=== PATIENT | male | born 1985 | race Caucasian/White ===

== ENCOUNTER 2019-07-23 21:30 | Emergency (ER) | payer OTHER ==
[2019-07-23] MEDS ORDERED: DIPH,PERTUS(ACELL)TETVAC-LF 0.5 ML VIAL IM ONE (21:50)
[2019-07-23] MEDS ORDERED: LIDOCAINE 1% INJ 10MG/ML (20 ML MDV) SQ STA (21:50)
--- NOTE | 2019-07-23 22:57 | ED ---
General Adult HPI - General Chief complaint: Wound/Laceration Stated complaint: right arm laceration Time Seen by Provider: 07/23/19 21:43 Source: patient, RN notes reviewed, old records reviewed Mode of arrival: ambulatory Limitations: no limitations - History of Present Illness Initial comments: 34-year-old male patient presents to ED for chief complaint laceration. Patient reports that he brushes arm against a measuring tool at his work that was metal. Patient has a small laceration on the dorsal aspect of right forearm. Reports that nothing broke. Denies any foreign body. Last tetanus 9 years ago. Denies any other complaints. Systemic: Pt denies fatigue, fever/chills, rash. Pt denies weakness, night sweats, weight loss. Neuro: Pt denies headache, visual disturbances, syncope or pre-syncope. HEENT: Pt denies ocular discharge or irritation, otalgia, rhinorrhea, pharyngitis or notable lymphadenopathy. Cardiopulmonary: Pt denies chest pain, SOB, heart palpitations, dyspnea on exertion. Abdominal/GI: Pt denies abdominal pain, n/v/d. : Pt denies dysuria, burning w/ urination, frequency/urgency. Denies new onset urinary or bowel incontinence. MSK: Pt denies myalgia, loss of strength or function in extremities. Neuro: Pt denies new onset weakness, paresthesias. - Related Data Previous Rx's Medication Instructions Recorded Amoxicillin 500 mg PO Q8H #30 capsule 05/16/14 Allergies Allergy/AdvReac Type Severity Reaction Status Date / Time No Known Allergies Allergy Verified 07/23/19 21:49 Review of Systems ROS Statement: Those systems with pertinent positive or pertinent negative responses have been documented in the HPI. ROS Other: All systems not noted in ROS Statement are negative. Past Medical History Past Medical History: Seizure Disorder History of Any Multi-Drug Resistant Organisms: None Reported Past Surgical History: Orthopedic Surgery Past Psychological History: No Psychological Hx Reported Smoking Status: Current every day smoker Past Alcohol Use History: Rare Past Drug Use History: None Reported General Exam - General Exam Comments Initial Comments: Constitutional: NAD, AOX3, Pt has pleasant affect. HEENT: NC/AT, trachea midline, neck supple, no lymphadenopathy. Posterior pharynx non erythematous, without exudates. External ears appear normal, without discharge. Mucous membranes moist. Eyes PERRLA, EOM intact. There is no scleral icterus. No pallor noted. Cardiopulmonary: RRR, no murmurs, rubs or gallops, no JVD noted. Lungs CTAB in anterior and posterior jimenez. No peripheral edema. Abdominal exam: Abdomen soft and non-distended. Abdomen non-tender to palpation in all 4 quadrants. Bowel sounds active in LLQ. No hepatosplenomegaly. No ecchymosis Neuro: CN II-XII grossly intact. No nuchal rigidity. No raccon eyes, no cooley sign, no hemotympanum. No cervical spinal tenderness. MSK: 4 cm laceration dorsal aspect of right forearm. Relatively superficial. Vigorously irrigated approximated with 4 simple interrupted sutures. No muscle exposure, no tenderness or foreign body involvement. Lungs range of motion of hand and wrist. Sensation intact. Neurovascular intact before and after suture placement. No posterior calf tenderness bilaterally, homans sign negative bilaterally. Posterior tibialis and radial pulse +2 bilaterally. Sensation i ntact in upper and lower extremities. Full active ROM in upper and lower extremities, 5/5 stregnth. Limitations: no limitations Course Vital Signs 07/23/19 21:48 Temperature 98.5 F Pulse Rate 77 Respiratory 20 Rate Blood Pressure 138/80 Procedures - Laceration Laceration #1 Consent Obtained: verbal consent Indication: laceration Site: upper extremity (right dorsal forearm) Size (cm): 4 Description: linear Depth: simple, single layer Anesthetic Used: lidocaine 1% Anesthesia Technique: local infiltration Amount (mls): 3 Pre-repair: wound explored, irrigated extensively, deep structures intact Type of Sutures: nylon Size of Sutures: 5-0 Number of Sutures: 4 Technique: simple, interrupted Patient Tolerated Procedure: well, no complications Medical Decision Making - Medical Decision Making 34-year-old male patient presents to ED for chief complaint laceration. Patient reports that he brushes arm against a measuring tool at his work that was metal. Patient has a small laceration on the dorsal aspect of right forearm. Reports that nothing broke. Denies any foreign body. Last tetanus 9 years ago. Denies any other complaints. Pt VSS, afebrile. Physical exam displayed: 4 cm laceration dorsal aspect of right forearm. Relatively superficial. Vigorously irrigated approximated with 4 simple interrupted sutures. No muscle exposure, no tenderness or foreign body involvement. Lungs range of motion of hand and wrist. Sensation intact. Neurovascular intact before and after suture placement. Return precautions discussed. Case discussed with Dr. Baker. Disposition Clinical Impression: Laceration Disposition: HOME SELF-CARE Condition: Stable Instructions (If sedation given, give patient instructions): Laceration (ED), Care For Your Stitches (ED) Additional Instructions: Patient to adhere to previously discussed treatment plan and will take medication(s) as directed. Patient to follow up with PCP in 1-2 days. Patient to return to ED if symptoms do not improve. Please return for suture removal: Hand: 7-10 days Face: 5 days Chest/abdomen: 12-14 days Extremities: 7-10 days Scalp: 7 days Eyebrow: 5-7 days Foot/sole: 12-14 days Please monitor for signs and symptoms of infection including: redness, warmth, drainage, discharge. Please return to ED if these signs or symptoms occur, new signs or symptoms develop or if condition worsens in anyway. Is patient prescribed a controlled substance at d/c from ED?: No Referrals: Leeroy Escobedo DO [Primary Care Provider] - 1-2 days
[2019-07-23 23:02] VITALS: BP 143/73; PULSE 87; RESP 18; TEMP 98.6
== END 2019-07-23 23:00 | disposition home or self-care (01) ==
LOC: EC 21:30
DX: S51.811A Laceration without foreign body of right forearm, initial encounter (principal); F17.200 Nicotine dependence, unspecified, uncomplicated; Z23 Encounter for immunization; W26.8XXA Contact with other sharp object(s), not elsewhere classified, initial encounter; Y93.89 Activity, other specified; Y92.69 Other specified industrial and construction area as the place of occurrence of the external cause; Y99.0 Civilian activity done for income or pay
CPT/HCPCS: 99283; 12002; 90471; 90715; J2001